=== PATIENT | male | born 1985 | race American Indian/Alaskan Native ===

== ENCOUNTER 2019-01-21 18:14 | Emergency (ER) | payer SELFPAY ==
--- NOTE | 2019-01-21 18:29 | Emergency Department Report ---
Blank Doc - Documentation Documentation: 33-year-old male that presents with right knee pain. This initial assessment/diagnostic orders/clinical plan/treatment(s) is/are subject to change based on patient's health status, clinical progression and re- assessment by fellow clinical providers in the ED. Further treatment and workup at subsequent clinical providers discretion. Patient/guardians urged not to elope from the ED as their condition may be serious if not clinically assessed and managed. Initial orders include: 1- Patient sent to [facility] for further evaluation and treatment 2- xrays
[2019-01-21 18:30] VITALS: BP 115/64
--- NOTE | 2019-01-21 19:38 | XRay Report ---
RIGHT KNEE 3 VIEWS INDICATION / CLINICAL INFORMATION: MAIN: knee pain Pt. c/o knee injury/pain; stretching and heard pop sound today; previous injury x 1 yr from fallen out of tree, no surgery or PT, on crutches about a month. COMPARISON: None available. FINDINGS: A moderate right knee effusion is present without fracture or dislocation. Mild degenerative arthrosi s is seen within the patellofemoral joint. Signer Name: Scott Flores MD Signed: 01/21/2019 7:34 PM Workstation Name: [id number]
[2019-01-21] MEDS ORDERED: KETOROLAC 60 MG/2 ML INJ IM ONE (21:41)
--- NOTE | 2019-01-21 22:05 | Emergency Department Report ---
ED Lower Extremity HPI - General Chief Complaint: Extremity Injury, Lower Stated Complaint: RT KNEE INJURY Time Seen by Provider: 01/21/19 18:29 Source: patient Mode of arrival: Ambulatory Limitations: No Limitations - History of Present Illness Initial Comments: 33-year-old -[place] male since emergency department complaining of right knee pain which started 2 days ago after he tried to flex his knee and stretching position. During this twitching episode he felt a pop to his right knee which is followed by swelling and pain which worsened with palpation and ambulation. There is no numbness or tingling is noted no prior knee injury MD Complaint: knee injury -: Sudden Injury: Knee: Right Type of Injury: hyperflexion Place: home Severity: mild, moderate Worsens With: weight bearing, movement, palpation Associated Symptoms: snap/pop sensation, swelling, able to partially bear weight - Related Data Previous Rx's Medication Instructions Recorded Last Taken Type Ketorolac [Toradol] 10 mg PO Q6H PRN #15 tablet 01/21/19 Unknown Rx traMADol [Ultram] 50 mg PO Q6HR PRN #20 tablet 01/21/19 Unknown Rx Allergies Allergy/AdvReac Type Severity Reaction Status Date / Time acetaminophen [From NyQuil] Allergy Shortness Verified 01/21/19 18:17 of Breath dextromethorphan Allergy Shortness Verified 01/21/19 18:17 [From NyQuil] of Breath doxylamine [From NyQuil] Allergy Shortness Verified 01/21/19 18:17 of Breath pseudoephedrine [From NyQuil] Allergy Shortness Verified 01/21/19 18:17 of Breath ED Review of Systems ROS: Stated complaint: RT KNEE INJURY Other details as noted in HPI Comment: All other systems reviewed and negative ED Past Medical Hx - Past Medical History Previous Medical History?: No - Surgical History Past Surgical History?: No - Social History Smoking Status: Current Every Day Smoker Substance Use Type: Alcohol, Marijuana - Medications Home Medications: Home Medications Medication Instructions Recorded Confirmed Last Taken Type Ketorolac [Toradol] 10 mg PO Q6H PRN #15 tablet 01/21/19 Unknown Rx traMADol [Ultram] 50 mg PO Q6HR PRN #20 tablet 01/21/19 Unknown Rx ED Physical Exam - General Limitations: No Limitations General appearance: alert, in no apparent distress - Head Head exam: Present: atraumatic, normocephalic - Eye Eye exam: Present: normal appearance, PERRL - ENT ENT exam: Present: mucous membranes moist - Neck Neck exam: Present: normal inspection - Respiratory Respiratory exam: Present: normal lung sounds bilaterally. Absent: respiratory distress - Cardiovascular Cardiovascular Exam: Present: regular rate, normal rhythm. Absent: systolic murmur, diastolic murmur, rubs, gallop - GI/Abdominal GI/Abdominal exam: Present: soft, normal bowel sounds - Rectal Rectal exam: Present: deferred - Extremities Exam Extremities exam: Present: normal inspection, tenderness, joint swelling. Absent: calf tenderness - Expanded Lower Extremity Exam Right Knee exam: Present: tenderness, swelling, pain/laxity with valgus, pain/laxity with varus. Absent: abrasion, laceration, ecchymosis, deformity, erythema, effusion, pain w/ pronation/supination Lower Leg exam: Present: normal inspection, full ROM Neuro vascular tendon exam: Present: no vascular compromise. Absent: abnormal cap refill - Back Exam Back exam: Present: normal inspection - Neurological Exam Neurological exam: Present: alert, oriented X3 - Psychiatric Psychiatric exam: Present: normal affect, normal mood - Skin Skin exam: Present: warm, dry, intact, normal color. Absent: rash ED Course Vital Signs 01/21/19 18:28 Temperature 98.1 F Pulse Rate 70 Respiratory 16 Rate Blood Pressure 115/64 O2 Sat by Pulse 100 Oximetry ED Lower Extremity MDM - Radiology Data Radiology results: report reviewed [facility] [address] [place] [address] XRay Report Signed Patient: ALONZO PEACOCK MR#: [id number] : 1985 Acct:[id number] Age/Sex: 33 / M ADM Date: 01/21/19 Loc: ED Attending Dr: Ordering Physician: SOLANGE JOHNSON NP Date of Service: 01/21/19 Procedure(s): XR knee 3V RT Accession Number(s): [id number] cc: SOLANGE JOHNSON NP Fluoro Time In Minutes: RIGHT KNEE 3 VIEWS INDICATION / CLINICAL INFORMATION: MAIN: knee pain Pt. c/o knee injury/pain; stretching and heard pop sound today; previous injury x 1 yr from fallen out of tree, no surgery or PT, on crutches about a month. COMPARISON: None available. FINDINGS: A moderate right knee effusion is present without fracture or dislocation. Mild degenerative arthrosis is seen within the patellofemoral joint. Signer Name: Scott Flores MD Signed: 01/21/2019 7:34 PM Workstation Name: [id number] Transcribed By: RADHA Dictated By: Scott Flores MD Electronically Authenticated By: Scott Flores MD Signed Date/Time: 01/21/19 1934 - Medical Decision Making 33-year-old -[place] male status post stretching injury to the right knee causing pain and swelling and difficulty ambulating. X-ray shows no fracture but does show an effusion to the right knee there is some mild joint laxity noted as well plan replacement knee immobilizer and given crutches and analgesic control as well for his symptoms is due to Follow up with orthopedic physician for definitive management as an MRI as needed. This was discussed with Mr. Peacock in detail she did express an understanding. Advised to return to emergency department should he feel his condition is worsening but also he may call if he does not know what to do Critical care attestation.: If time is entered above; I have spent that time in minutes in the direct care of this critically ill patient, excluding procedure time. ED Disposition Clinical Impression: Knee effusion, Knee pain, right Disposition: DC-01 TO HOME OR SELFCARE Is pt being admited?: No Does the pt Need Aspirin: No Condition: Stable Instructions: Knee Effusion (ED), Arthralgia (ED) Referrals: ALTAGRACIA NUNES MD [Staff Physician] - 2-3 Days
== END 2019-01-21 22:50 | disposition home or self-care (01) ==
LOC: ED 18:14
DX: M25.461 Effusion, right knee (principal); F17.200 Nicotine dependence, unspecified, uncomplicated; F10.10 Alcohol abuse, uncomplicated; F12.10 Cannabis abuse, uncomplicated; Z79.899 Other long term (current) drug therapy; Z88.8 Allergy status to other drugs, medicaments and biological substances; X50.0XXA Overexertion from strenuous movement or load, initial encounter; Y93.89 Activity, other specified; Y92.89 Other specified places as the place of occurrence of the external cause; Y99.8 Other external cause status
CPT/HCPCS: 29505; 73562; 96372; 99283; J1885